=== PATIENT | female | born 2000 | race African-American/Black ===

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

== ENCOUNTER 2019-08-31 11:06 | Emergency (ER) | payer MEDICAID ==
[~2019-08-31] VITALS: Ht 160 cm; Wt 61.7 kg
[2019-08-31 11:15] VITALS: BP 129/76
[2019-08-31] MEDS ORDERED: methylPREDNISolone SOD SUCC 125 MG/2 ML VL IV ONE (12:15)
== END 2019-08-31 12:41 | disposition home or self-care (01) ==
LOC: EDBD 11:06 → ER 11:06
DX: T78.40XA Allergy, unspecified, initial encounter (principal); J45.909 Unspecified asthma, uncomplicated; L50.0 Allergic urticaria; X58.XXXA Exposure to other specified factors, initial encounter
CPT/HCPCS: 96374; 99283; J2930

== ENCOUNTER 2022-04-28 14:15 | Emergency (ER) | payer MEDICAID ==
[~2022-04-28] VITALS: Ht 157.5 cm; Wt 65.2 kg
[2022-04-28] MEDS ORDERED: ACETAMINOPHEN 500 MG TAB PO ONE (15:30)
[2022-04-28] MEDS ORDERED: ACET-1158 PO (16:48)
[2022-04-28 17:57] VITALS: BP 137/86
== END 2022-04-28 17:58 | disposition home or self-care (01) ==
LOC: ER 14:15
DX: O26.893 Other specified pregnancy related conditions, third trimester (principal); J06.9 Acute upper respiratory infection, unspecified; J45.909 Unspecified asthma, uncomplicated; Z20.822 Contact with and (suspected) exposure to COVID-19; Z3A.29 29 weeks gestation of pregnancy
CPT/HCPCS: 36415; 87426; 87804